=== PATIENT | female | born 1970 | race Caucasian/White ===

== ENCOUNTER 2019-12-18 09:44 | Inpatient (IN) | payer MEDICAID, OTHER, SELFPAY ==
[~2019-12-18] VITALS: Ht 162.6 cm; Wt 79.4 kg
[2019-12-18] VITALS (8 sets, daily range): BP systolic 97–145; BP diastolic 50–85
[2019-12-18] MEDS ORDERED: SODIUM CHLORIDE 0.9% 1,000ML IVBOLUS ONE ×2 (10:00→11:00)
[2019-12-18] MEDS ORDERED: PANTOPRAZOLE 40 MG IV IVPush ONE (10:00)
[2019-12-18] MEDS ORDERED: SODIUM CHLORIDE FLUSH 10ML SYR IVF ONE (10:00)
--- NOTE | 2019-12-18 10:09 | NUR ---
THIS IS A 49 YEAR OLD FEMALE WHO WAS BIB BY AMBULANCE DUE TO ALTERED. PT FOUND BY FAMILY ALTERED ON THE GROUND, DEEP, GASPING BREATHING. FAMILY POOR HISTORI[employer]. PT ALERT, STATES, "OUCH". PT TO CT SCAN. PT BACK TO ROOM, [facility] IR[facility] AND TACY, CO2 18, 98% ON RA, CYCLE VS. TEMP 100.3 RECTAL
[2019-12-18] MEDS ORDERED: ETOMIDATE 20 MG/10 ML ONE (10:24)
[2019-12-18] MEDS ORDERED: PROPOFOL 10 MG/ML, 100ML IV ONE (10:24)
[2019-12-18] MEDS ORDERED: SUCCINYLCHOLINE 20 MG/ML, 10ML ONE (10:24)
[2019-12-18] MEDS ORDERED: VECURONIUM 10 MG ONE (10:24)
[2019-12-18] MEDS ORDERED: PLEASE ENTER HEIGHT AND WEIGHT MC SCH (10:30)
[2019-12-18] MEDS ORDERED: CEFTRIAXONE PMX 1GM/50ML 50 ML IVPB ONE (10:30)
[2019-12-18] MEDS ORDERED: PLEASE ENTER ALLERGIES MC SCH (10:30)
[2019-12-18 10:32] LABS: MEAN CORPUSCULAR HEMOGLOBIN 26.6 pg (27.0-34.8); MEAN CORPUSCULAR HGB CONC 31.7 g/dL (32.4-35.8); MEAN CORPUSCULAR VOLUME 83.7 fL (80-100); MEAN PLATELET VOLUME 7.3 fL (7.4-10.4); PLATELET COUNT 572 x10^3/uL (130-400); RED BLOOD COUNT 2.56 x10^6/uL (3.82-5.3); RED CELL DISTRIBUTION WIDTH 17.5 % (9.6-15.2)
--- NOTE | 2019-12-18 10:40 | NUR ---
ITUBATE DUE TO RESP DISTRESS, ETOMODATE 20MG IV, 90 SUCCICOLINE, 8.0 22 AT THE LIP. GOOD CAP, CENTRAL LINE PLACED BY DR. MURPHY, STOP TIME COMPLETED PRIOR TO PROCEEDURES
[2019-12-18 10:47] LABS: MICROSCOPIC INDICATED
[2019-12-18 10:52] LABS: MD YES
[2019-12-18 10:54] LABS: BAND#(MANUAL) 2.29 x10^3/uL; BANDS%(MANUAL) 9 % (0-7); LYMPH#(MANUAL) 0.51 x10^3/uL (1-3.4); LYMPHS% (MANUAL) 2 % (22-44); MONOS#(MANUAL) 0.51 x10^3/uL (0.3-2.7); MONOS% (MANUAL) 2 % (2-9); SEGS% (MANUAL) 87 % (42-75)
[2019-12-18 10:55] LABS: ANISOCYTOSIS 1+; OVALOCYTES 1+; TEAR DROPS 1+
[2019-12-18] MEDS ORDERED: CEFTRIAXONE PMX 1GM/50ML 50 ML ONE (10:55)
[2019-12-18] MEDS ORDERED: PANTOPRAZOLE 40 MG IV ONE (10:55)
[2019-12-18 10:56] LABS: <PLATELET ESTIMATE> INCREASED; <PLT MORPHOLOGY> NORMAL PLT MORPH; HYPOCHROMIA 1+
[2019-12-18] MEDS ORDERED: ETOMIDATE 20 MG/10 ML IVPush ONE (11:00)
[2019-12-18] MEDS ORDERED: SUCCINYLCHOLINE 20 MG/ML, 10ML IVPush ONE (11:00)
--- NOTE | 2019-12-18 11:04 | NUR ---
BLOOD CULTURES DRAWN X 2 PRIOR TO ANTIBX
[2019-12-18 11:06] LABS: ALANINE AMINOTRANSFERASE 28 U/L (12-78); ALBUMIN 2.9 g/dL (3.4-5.0); ANION GAP 30 mmol/L (5-15); CALCIUM 6.6 mg/dL (8.5-10.1); CHLORIDE 101 mmol/L (98-107); SALICYLATE LEVEL 3.6 mg/dL (2.8-20.0)
[2019-12-18 11:08] LABS: ALKALINE PHOSPHATASE 148 U/L (45-117); BILIRUBIN,TOTAL 0.2 mg/dL (0.2-1.0); TOTAL PROTEIN 8.2 g/dL (6.4-8.2)
[2019-12-18] MEDS ORDERED: DEXTROSE 50%, 50ML SYRINGE IVPush ONE (11:30)
[2019-12-18] MEDS ORDERED: INSULIN REGULAR 100 UNITS/ML, 3ML VIAL IVPush ONE (11:30)
[2019-12-18] MEDS ORDERED: CALCIUM CHLORIDE 10%, 10ML SYR IVPush ONE (11:30)
[2019-12-18] MEDS ORDERED: SODIUM BICARB 8.4%, 50ML SYRINGE IVPush ONE (11:30)
[2019-12-18] MEDS ORDERED: CALCIUM CHLORIDE 10%, 10ML SYR ONE (11:31)
[2019-12-18] MEDS ORDERED: DEXTROSE 50%, 50ML SYRINGE ONE (11:32)
[2019-12-18] MEDS ORDERED: INSULIN SINGLE DOSE, ER ONE (11:32)
[2019-12-18] MEDS ORDERED: SODIUM BICARB 8.4%, 50ML SYRINGE ONE (11:32)
[2019-12-18] MEDS: PROPOFOL 100 ML IV PRN ×2 (11:38→18:02)
--- NOTE | 2019-12-18 11:54 | NUR ---
PT MOTHER VISIT NOEMY SCHNEIDER AT [phone]
[2019-12-18] MEDS: SODIUM BICARB 8.4%,50ML SYR. 150 MEQ in DEXTROSE 5% 1,000 ML IV SCH ×2 (11:58→17:57)
--- NOTE | 2019-12-18 11:58 | NUR ---
[facility] [phone]
[2019-12-18] MEDS ORDERED: VECURONIUM 10 MG IVPush ONE (12:00)
[2019-12-18] MEDS ORDERED: LISI5TAB7 PO (12:05)
[2019-12-18] MEDS ORDERED: MORP30TA81 PO (12:05)
[2019-12-18] MEDS ORDERED: VERA120T13 PO (12:05)
--- NOTE | 2019-12-18 12:15 | NUR ---
DISCUSS WITH FAMILY PLAN OF CARE, RECEIVED PHONE NUMBERS. BLOOD INFUSING WELL.
[2019-12-18] MEDS ORDERED: LIDOCAINE 1%, 10ML ONE (12:49)
--- NOTE | 2019-12-18 12:59 | NUR ---
REPORT TO YIFAN RN IN CCU IR AT BEDSIDE FOR DIALYSIS LINE PLACEMENT-ASKED TO PERFORM PROCEDURE IN CCU (IR AGREEABLE) FLUID BOLUS COMPLETE (SEPSIS 30ML/KG)
[2019-12-18] MEDS ORDERED: morphine SULFATE 10 MG/ML, 1ML IVPush PRN (13:00)
[2019-12-18] MEDS ORDERED: BISACODYL 10 MG SUPP PR PRN (13:00)
[2019-12-18] MEDS ORDERED: ONDANSETRON 2MG/ML, 2ML IVPush PRN (13:00)
[2019-12-18] MEDS ORDERED: POLYETHYLENE GLYCOL 17 GM PACKET PO PRN (13:00)
[2019-12-18] MEDS ORDERED: DOXYCYCLINE 100 MG in DEXTROSE 5% 250 ML IV SCH (13:00)
[2019-12-18 13:53] LABS: FREE T4 (FREE THYROXINE) 0.91 ng/dL (0.76-1.46); TROPONIN I < 0.015 ng/mL (0.000-0.045)
[2019-12-18] MEDS ORDERED: LINEZOLID 20MG/ML ORAL SUSP PO SCH (14:30)
[2019-12-18] MEDS ORDERED: LINEZOLID 600 MG TABLET PO SCH (14:46)
[2019-12-18] MEDS ORDERED: SENNA/DOCUSATE TABLET NG PRN (15:30)
[2019-12-18] MEDS ORDERED: SENNA 176 MG/5 ML ORAL SOL NG PRN (15:30)
[2019-12-18] MEDS ORDERED: PHARMACY MAY ADJ FOR RENAL FX MC SCH (15:30)
[2019-12-18] MEDS ORDERED: DOCUSATE 50 MG/5 ML, 10ML UDC NG PRN (15:30)
[2019-12-18] MEDS ORDERED: DEXTROSE 50%, 50ML SYRINGE IVPush PRN (15:30)
[2019-12-18] MEDS ORDERED: GLUCAGON 1 MG IM PRN (15:30)
[2019-12-18] MEDS ORDERED: DEXTROSE 4 GM TAB.CHEW PO PRN (15:30)
[2019-12-18] MEDS: HEPARIN 5,000 UNITS/ML, 1ML SQ SCH (18:02)
[2019-12-18] MEDS: MEROPENEM 500 MG in SODIUM CHLORIDE 0.9% 100 ML IV SCH (18:34)
[2019-12-18 18:58] LABS: TROPONIN I 0.075 ng/mL (0.000-0.045)
[2019-12-18 19:02] LABS: ANION GAP 16 mmol/L (5-15); CALCIUM 7.4 mg/dL (8.5-10.1); CHLORIDE 100 mmol/L (98-107); CREATININE 4.83 mg/dL (0.55-1.02)
[2019-12-18 19:18] LABS: MD YES; MEAN CORPUSCULAR HEMOGLOBIN 27.6 pg (27.0-34.8); MEAN CORPUSCULAR HGB CONC 33.5 g/dL (32.4-35.8); MEAN CORPUSCULAR VOLUME 82.2 fL (80-100); MEAN PLATELET VOLUME 7.2 fL (7.4-10.4); PLATELET COUNT 309 x10^3/uL (130-400); RED BLOOD COUNT 3.03 x10^6/uL (3.82-5.3); RED CELL DISTRIBUTION WIDTH 15.4 % (9.6-15.2)
[2019-12-18 19:25] LABS: ANISOCYTOSIS 1+; BAND#(MANUAL) 0.59 x10^3/uL; BANDS%(MANUAL) 9 % (0-7); HYPOCHROMIA 1+; LYMPH#(MANUAL) 0.73 x10^3/uL (1-3.4); LYMPHS% (MANUAL) 11 % (22-44); MONOS#(MANUAL) 0.13 x10^3/uL (0.3-2.7); MONOS% (MANUAL) 2 % (2-9); OVALOCYTES 1+; SEG#(MANUAL) 5.15 x10^3/uL (1.8-6.8); SEGS% (MANUAL) 78 % (42-75)
[2019-12-18 19:26] LABS: <PLATELET ESTIMATE> ADEQUATE; <PLT MORPHOLOGY> NORMAL PLT MORPH; TEAR DROPS 1+
[2019-12-18] MEDS ORDERED: KSCALE TO 4.0 IV ONE (20:30)
[2019-12-18] MEDS ORDERED: POTASSIUM CHLORIDE 30 MEQ in SODIUM CHLORIDE 0.9% 100 ML IV ONE (20:30)
[2019-12-18] MEDS: LACTULOSE 20 GM/30 ML UDC PO SCH ×2 (21:00→23:06)
[2019-12-18] MEDS: SODIUM CHLORIDE FLUSH 10ML SYR IVF SCH (21:09)
[2019-12-18] MEDS: KSCALE TO 4.0 IV SCH (21:09)
[2019-12-18] MEDS: FAMOTIDINE 20 MG/2 ML IVPush SCH (21:10)
[2019-12-18] MEDS ORDERED: ACETAMINOPHEN 650 MG/20.3 ML UDC ONE (23:26)
[2019-12-18] MEDS ORDERED: NOREPINEPHRINE 8 MG in SODIUM CHLORIDE 0.9% 242 ML IV PRN (23:30)
[2019-12-18] MEDS: LINEZOLID 600 MG TABLET PO SCH (23:34)
[2019-12-18] MEDS: ACETAMINOPHEN 325 MG TABLET PO PRN (23:35)
[2019-12-19] MEDS ORDERED: PROPOFOL 100 ML IV ONE (01:24)
[2019-12-19 02:24] LABS: MEAN CORPUSCULAR HEMOGLOBIN 27.6 pg (27.0-34.8); MEAN CORPUSCULAR HGB CONC 33.7 g/dL (32.4-35.8); MEAN CORPUSCULAR VOLUME 81.9 fL (80-100); MEAN PLATELET VOLUME 6.9 fL (7.4-10.4); PLATELET COUNT 334 x10^3/uL (130-400); RED BLOOD COUNT 3.11 x10^6/uL (3.82-5.3); RED CELL DISTRIBUTION WIDTH 15.3 % (9.6-15.2)
[2019-12-19 02:34] LABS: ALBUMIN 1.6 g/dL (3.4-5.0); ANION GAP 10 mmol/L (5-15); CALCIUM 6.7 mg/dL (8.5-10.1); CHLORIDE 99 mmol/L (98-107); CREATININE 4.76 mg/dL (0.55-1.02); IRON LEVEL 10 mcg/dL (50-170)
[2019-12-19 02:43] LABS: MD YES
[2019-12-19 02:48] LABS: % IRON SATURATION 5 % (20-55); BAND#(MANUAL) 1.58 x10^3/uL; BANDS%(MANUAL) 17 % (0-7); CREATINE KINASE, TOTAL 3663 U/L (26-192); EOS#(MANUAL) 0.09 x10^3/uL (0.0-0.4); EOS% (MANUAL) 1 % (1-7); LYMPH#(MANUAL) 1.02 x10^3/uL (1-3.4); LYMPHS% (MANUAL) 11 % (22-44); METAMYELOCYTES# (MANUAL) 0.09 x10^3/uL (0-0); METAMYELOCYTES% (MANUAL) 1 % (0-1); MONOS#(MANUAL) 0.37 x10^3/uL (0.3-2.7); MONOS% (MANUAL) 4 % (2-9); NRBC % (MANUAL) 1 % (0-1); SEG#(MANUAL) 6.14 x10^3/uL (1.8-6.8); SEGS% (MANUAL) 66 % (42-75); TOTAL IRON BINDING CAPACITY 197 mcg/dL (250-450)
[2019-12-19 02:49] LABS: ANISOCYTOSIS 1+
[2019-12-19 02:50] LABS: MICROCYTOSIS 1+
[2019-12-19 02:51] LABS: <PLATELET ESTIMATE> ADEQUATE; OVALOCYTES 1+
[2019-12-19 02:52] LABS: SMALL PLATELETS 1+
[2019-12-19] MEDS ORDERED: POTASSIUM CHLORIDE 30 MEQ in SODIUM CHLORIDE 0.9% 100 ML IV ONE (03:00)
[2019-12-19] MEDS: KSCALE TO 4.0 IV SCH ×4 (03:00→21:00)
[2019-12-19 04:30] VITALS: BP 109/66
[2019-12-19] MEDS: MEROPENEM 500 MG in SODIUM CHLORIDE 0.9% 100 ML IV SCH ×2 (06:28→17:47)
[2019-12-19] MEDS ORDERED: MAGNESIUM SULFATE PMX 2GM/50ML 50 ML IV ONE ×2 (06:30→08:00)
[2019-12-19] MEDS: PROPOFOL 100 ML IV PRN ×3 (06:33→18:44)
[2019-12-19] MEDS ORDERED: ERGOCALCIFEROL 50,000 UNIT CAPSULE PO SCH (07:00)
[2019-12-19] MEDS ORDERED: PANTOPRAZOLE 40 MG IV IV SCH (09:00)
[2019-12-19] MEDS: SODIUM CHLORIDE FLUSH 10ML SYR IVF SCH ×2 (09:04→19:43)
[2019-12-19] MEDS: HEPARIN 5,000 UNITS/ML, 1ML SQ SCH ×2 (09:05→19:42)
[2019-12-19] MEDS: LINEZOLID 600 MG TABLET PO SCH (09:05)
[2019-12-19] MEDS: SENNA/DOCUSATE TABLET PO SCH (09:06)
[2019-12-19] MEDS: LACTATED RINGERS 1,000 ML IV SCH ×2 (09:06→23:01)
[2019-12-19] MEDS ORDERED: CEFTRIAXONE PMX 2GM/50ML 50 ML IV SCH (11:00)
[2019-12-19] MEDS ORDERED: CALCIUM CHLORIDE 13.6 MEQ in SODIUM CHLORIDE 0.9% 100 ML IV ONE (11:30)
[2019-12-19] MEDS ORDERED: SODIUM BICARBONATE 8.4% 150 MEQ in DEXTROSE 5% 1,000 ML IV SCH (11:30)
[2019-12-19] MEDS: LACTULOSE 20 GM/30 ML UDC PO SCH ×3 (12:00→21:00)
[2019-12-19 13:44] LABS: CREATININE,URINE RANDOM 79.9 mg/dL
[2019-12-19] MEDS: POTASSIUM CHLORIDE PMX 100 ML IV ONE ×2 (14:56→16:18)
[2019-12-19] MEDS ORDERED: FENTANYL PF 1,000 MCG in SODIUM CHLORIDE 0.9% 80 ML IV PRN (16:00)
[2019-12-19] MEDS ORDERED: POTASSIUM CHLORIDE PMX 100 ML IV ONE (19:30)
[2019-12-19] MEDS: FAMOTIDINE 20 MG/2 ML IVPush SCH (19:43)
[2019-12-19] MEDS: OXYcodone IR 5MG TABLET PO PRN (19:44)
[2019-12-20] MEDS: OXYcodone IR 5MG TABLET PO PRN ×5 (00:06→21:36)
[2019-12-20] MEDS: KSCALE TO 4.0 IV SCH ×4 (03:00→20:56)
[2019-12-20] MEDS: PROPOFOL 100 ML IV PRN (03:11)
[2019-12-20 04:00] VITALS: BP 132/83
[2019-12-20 05:14] LABS: MEAN CORPUSCULAR HEMOGLOBIN 27.5 pg (27.0-34.8); MEAN CORPUSCULAR HGB CONC 33.2 g/dL (32.4-35.8); MEAN CORPUSCULAR VOLUME 82.9 fL (80-100); MEAN PLATELET VOLUME 7.1 fL (7.4-10.4); PLATELET COUNT 273 x10^3/uL (130-400); RED BLOOD COUNT 2.86 x10^6/uL (3.82-5.3); RED CELL DISTRIBUTION WIDTH 15.6 % (9.6-15.2)
[2019-12-20 05:20] LABS: ALANINE AMINOTRANSFERASE 29 U/L (12-78); ALBUMIN 1.6 g/dL (3.4-5.0); ANION GAP 8 mmol/L (5-15); CALCIUM 7.8 mg/dL (8.5-10.1); CHLORIDE 103 mmol/L (98-107); CREATININE 2.05 mg/dL (0.55-1.02)
[2019-12-20 05:34] LABS: ALKALINE PHOSPHATASE 194 U/L (45-117); BILIRUBIN,TOTAL 0.3 mg/dL (0.2-1.0); CREATINE KINASE, TOTAL 1630 U/L (26-192); TOTAL PROTEIN 5.6 g/dL (6.4-8.2)
[2019-12-20] MEDS: MEROPENEM 500 MG in SODIUM CHLORIDE 0.9% 100 ML IV SCH (05:34)
[2019-12-20] MEDS: LACTATED RINGERS 1,000 ML IV SCH (05:36)
[2019-12-20 05:38] LABS: BILIRUBIN, DIRECT 0.1 mg/dL (0.1-0.2); BILIRUBIN,INDIRECT 0.2 mg/dL (0.0-2.0)
[2019-12-20 06:03] LABS: MD YES
[2019-12-20 06:05] LABS: ANISOCYTOSIS 1+; BAND#(MANUAL) 0.88 x10^3/uL; BANDS%(MANUAL) 6 % (0-7); LYMPH#(MANUAL) 0.88 x10^3/uL (1-3.4); LYMPHS% (MANUAL) 6 % (22-44); MICROCYTOSIS 1+; MONOS#(MANUAL) 0.44 x10^3/uL (0.3-2.7); MONOS% (MANUAL) 3 % (2-9); SEG#(MANUAL) 12.41 x10^3/uL (1.8-6.8); SEGS% (MANUAL) 85 % (42-75)
[2019-12-20 06:06] LABS: <PLATELET ESTIMATE> ADEQUATE; <PLT MORPHOLOGY> NORMAL PLT MORPH; OVALOCYTES 1+; TEAR DROPS 1+; TOXIC GRAN 1+
[2019-12-20] MEDS ORDERED: POTASSIUM CHLORIDE 30 MEQ in SODIUM CHLORIDE 0.9% 100 ML IV ONE (06:30)
[2019-12-20] MEDS ORDERED: LIDOCAINE-MPF 1%, 2ML ENDO PRN (08:30)
[2019-12-20] MEDS: POTASSIUM CHLORIDE 10% 20 MEQ/15 ML UDC PO SCH ×2 (09:18→16:57)
[2019-12-20] MEDS: SODIUM CHLORIDE FLUSH 10ML SYR IVF SCH ×2 (09:18→20:55)
[2019-12-20] MEDS: HEPARIN 5,000 UNITS/ML, 1ML SQ SCH ×2 (09:18→20:05)
[2019-12-20] MEDS: SENNA/DOCUSATE TABLET PO SCH (09:18)
[2019-12-20] MEDS ORDERED: DEXMEDETOMIDINE 400 MCG in SODIUM CHLORIDE 0.9% 96 ML IV PRN (09:30)
[2019-12-20] MEDS: NS + 20MEQ KCL 1,000 ML IV SCH (10:47)
[2019-12-20 11:29] LABS: MICROSCOPIC AUTO
[2019-12-20] MEDS: CEFAZOLIN PMX 1GM/50ML 50 ML IV SCH ×2 (11:44→20:05)
[2019-12-20] MEDS ORDERED: POTASSIUM CHLORIDE PMX 100 ML IV ONE ×3 (12:00→21:30)
[2019-12-20] MEDS: ONDANSETRON 2MG/ML, 2ML IV PRN (16:28)
[2019-12-20] MEDS: FAMOTIDINE 20 MG/2 ML IVPush SCH (20:55)
[2019-12-21] MEDS: NS + 20MEQ KCL 1,000 ML IV SCH ×2 (00:38→09:25)
[2019-12-21] MEDS: KSCALE TO 4.0 IV SCH (03:00)
[2019-12-21] MEDS: CEFAZOLIN PMX 1GM/50ML 50 ML IV SCH ×3 (03:44→19:55)
[2019-12-21 04:00] VITALS: BP 156/96
[2019-12-21] MEDS ORDERED: POTASSIUM CHLORIDE PMX 100 ML IV ONE (04:00)
[2019-12-21] MEDS: OXYcodone IR 5MG TABLET PO PRN ×4 (04:19→21:40)
[2019-12-21] MEDS: ONDANSETRON 2MG/ML, 2ML IV PRN ×2 (04:26→22:33)
[2019-12-21] MEDS: SENNA/DOCUSATE TABLET PO SCH (07:38)
[2019-12-21 07:55] LABS: ANION GAP 9 mmol/L (5-15); CALCIUM 8.1 mg/dL (8.5-10.1); CHLORIDE 112 mmol/L (98-107); CREATININE 1.22 mg/dL (0.55-1.02)
[2019-12-21] MEDS: HEPARIN 5,000 UNITS/ML, 1ML SQ SCH ×2 (09:24→19:55)
[2019-12-21] MEDS: SODIUM CHLORIDE FLUSH 10ML SYR IVF SCH ×2 (09:25→20:45)
[2019-12-21 10:59] LABS: MEAN CORPUSCULAR HEMOGLOBIN 27.1 pg (27.0-34.8); MEAN CORPUSCULAR HGB CONC 32.1 g/dL (32.4-35.8); MEAN CORPUSCULAR VOLUME 84.6 fL (80-100); MEAN PLATELET VOLUME 6.4 fL (7.4-10.4); PLATELET COUNT 287 x10^3/uL (130-400); RED BLOOD COUNT 3.05 x10^6/uL (3.82-5.3); RED CELL DISTRIBUTION WIDTH 15.9 % (9.6-15.2)
[2019-12-21 11:13] LABS: BASOPHILS # (AUTO) 0.01 x10^3/uL (0-0.1); BASOPHILS % (AUTO) 0 % (0-1); EOSINOPHILS # (AUTO) 0.03 x10^3/uL (0-0.4); EOSINOPHILS % (AUTO) 0 % (1-7); LYMPHOCYTES # (AUTO) 0.99 x10^3/uL (1-3.4); LYMPHOCYTES % (AUTO) 5 % (22-44); MD SCAN; MONOCYTES # (AUTO) 1.09 x10^3/uL (0.2-0.8); MONOCYTES % (AUTO) 5 % (2-9); NEUTROPHILS # (AUTO) 18.44 x10^3/uL (1.8-6.8); NEUTROPHILS % (AUTO) 90 % (42-75)
[2019-12-21 13:44] LABS: CLOSTRIDIUM DIFFICILE ANTIGEN NEGATIVE; CLOSTRIDIUM DIFFICILE TOXIN NEGATIVE (Negative)
[2019-12-21 19:05] VITALS: BP 167/99
[2019-12-21] MEDS: VERAPAMIL 80MG TABLET PO SCH (20:49)
[2019-12-21] MEDS: FAMOTIDINE 20 MG/2 ML IVPush SCH (20:49)
[2019-12-22] VITALS (8 sets, daily range): BP systolic 139–173; BP diastolic 90–108
[2019-12-22] MEDS: NS + 20MEQ KCL 1,000 ML IV SCH ×2 (00:01→08:00)
[2019-12-22] MEDS: LABETALOL 5MG/ML, 20ML IVPush PRN ×2 (00:35→04:00)
[2019-12-22] MEDS: OXYcodone IR 5MG TABLET PO PRN ×5 (02:39→20:26)
[2019-12-22] MEDS ORDERED: hydrALAzine 20 MG/ML, 1ML IV PRN (03:00)
[2019-12-22] MEDS: CEFAZOLIN PMX 1GM/50ML 50 ML IV SCH ×3 (04:00→19:56)
[2019-12-22] MEDS: ONDANSETRON 2MG/ML, 2ML IV PRN ×3 (05:31→19:56)
[2019-12-22] MEDS: SENNA/DOCUSATE TABLET PO SCH (07:33)
[2019-12-22] MEDS: SODIUM CHLORIDE FLUSH 10ML SYR IVF SCH ×2 (07:33→20:27)
[2019-12-22] MEDS: VERAPAMIL 80MG TABLET PO SCH ×3 (07:39→22:15)
[2019-12-22] MEDS: FAMOTIDINE 20 MG/2 ML IVPush SCH (07:40)
[2019-12-22] MEDS: HEPARIN 5,000 UNITS/ML, 1ML SQ SCH ×2 (07:40→20:26)
[2019-12-22 09:02] LABS: MEAN CORPUSCULAR HEMOGLOBIN 26.9 pg (27.0-34.8); MEAN CORPUSCULAR VOLUME 83.9 fL (80-100); MEAN PLATELET VOLUME 6.6 fL (7.4-10.4); PLATELET COUNT 238 x10^3/uL (130-400); RED BLOOD COUNT 3.04 x10^6/uL (3.82-5.3); RED CELL DISTRIBUTION WIDTH 16.1 % (9.6-15.2)
[2019-12-22 09:14] LABS: ALANINE AMINOTRANSFERASE 17 U/L (12-78); ALBUMIN 1.9 g/dL (3.4-5.0); ANION GAP 6 mmol/L (5-15); CALCIUM 8.2 mg/dL (8.5-10.1); CHLORIDE 118 mmol/L (98-107); CREATININE 0.79 mg/dL (0.55-1.02)
[2019-12-22 09:18] LABS: ALKALINE PHOSPHATASE 135 U/L (45-117); BILIRUBIN,TOTAL 0.3 mg/dL (0.2-1.0); TROPONIN I < 0.015 ng/mL (0.000-0.045)
[2019-12-22 09:19] LABS: CREATINE KINASE, TOTAL 260 U/L (26-192)
[2019-12-22 09:29] LABS: MD YES
[2019-12-22 09:31] LABS: <PLATELET ESTIMATE> ADEQUATE; <PLT MORPHOLOGY> NORMAL PLT MORPH; ANISOCYTOSIS 1+; BAND#(MANUAL) 0.55 x10^3/uL; BANDS%(MANUAL) 3 % (0-7); EOS#(MANUAL) 0.18 x10^3/uL (0.0-0.4); EOS% (MANUAL) 1 % (1-7); LYMPH#(MANUAL) 1.66 x10^3/uL (1-3.4); LYMPHS% (MANUAL) 9 % (22-44); METAMYELOCYTES# (MANUAL) 0.18 x10^3/uL (0-0); METAMYELOCYTES% (MANUAL) 1 % (0-1); MONOS#(MANUAL) 0.92 x10^3/uL (0.3-2.7); MONOS% (MANUAL) 5 % (2-9); MYELOCYTES# (MANUAL) 0.18 x10^3/uL (0-0); MYELOCYTES% (MANUAL) 1 % (0-0); NRBC % (MANUAL) 1 % (0-1); OVALOCYTES 1+; SEG#(MANUAL) 14.72 x10^3/uL (1.8-6.8); SEGS% (MANUAL) 80 % (42-75)
[2019-12-22 09:32] LABS: POLYCHROMASIA 1+; TEAR DROPS 1+; TOXIC GRAN 1+
[2019-12-22 09:35] LABS: HYPOCHROMIA 1+
[2019-12-22] MEDS ORDERED: POTASSIUM CHLORIDE 10 MEQ TABLET.ER PO ONE (11:00)
[2019-12-22] MEDS ORDERED: FUROSEMIDE 40 MG/4 ML IV ONE (11:00)
[2019-12-22] MEDS ORDERED: LISI-420 PO (14:56)
[2019-12-22] MEDS ORDERED: SODI650T PO (14:56)
[2019-12-22] MEDS ORDERED: TOPI100T39 PO (14:56)
[2019-12-22] MEDS ORDERED: VERA80TA25 PO (14:56)
[2019-12-22] MEDS ORDERED: FOLI-17 PO (14:56)
[2019-12-22] MEDS ORDERED: FERR324T5 PO (14:56)
[2019-12-22] MEDS ORDERED: OMEP20TA62 PO (14:56)
[2019-12-22] MEDS ORDERED: BUTA1CAP59 PO (15:06)
[2019-12-22] MEDS ORDERED: MAGN400T36 PO (15:06)
[2019-12-22] MEDS ORDERED: PREG100C PO (15:06)
[2019-12-22] MEDS ORDERED: GABA-827 PO (15:06)
[2019-12-23] MEDS: OXYcodone IR 5MG TABLET PO PRN ×6 (00:29→21:47)
[2019-12-23 00:30] VITALS: BP 152/90
[2019-12-23] MEDS: CEFAZOLIN PMX 1GM/50ML 50 ML IV SCH ×3 (04:15→20:39)
[2019-12-23] MEDS: ONDANSETRON 2MG/ML, 2ML IV PRN ×3 (04:22→19:11)
[2019-12-23] MEDS: SODIUM CHLORIDE FLUSH 10ML SYR IVF SCH ×2 (07:03→21:34)
[2019-12-23] MEDS: SENNA/DOCUSATE TABLET PO SCH (07:04)
[2019-12-23 08:04] VITALS: BP_SYST 139; BP_SYST 161; BP_DIAS 101; BP_DIAS 87
[2019-12-23] MEDS: VERAPAMIL 80MG TABLET PO SCH ×3 (08:45→20:26)
[2019-12-23] MEDS: HEPARIN 5,000 UNITS/ML, 1ML SQ SCH ×2 (08:52→20:39)
[2019-12-23] MEDS ORDERED: FAMOTIDINE 20 MG TABLET PO SCH (09:00)
[2019-12-23 09:44] VITALS: BP 128/81
[2019-12-23 09:46] LABS: MEAN CORPUSCULAR HEMOGLOBIN 26.1 pg (27.0-34.8); MEAN CORPUSCULAR HGB CONC 31.2 g/dL (32.4-35.8); MEAN CORPUSCULAR VOLUME 83.7 fL (80-100); PLATELET COUNT 187 x10^3/uL (130-400); RED BLOOD COUNT 2.84 x10^6/uL (3.82-5.3); RED CELL DISTRIBUTION WIDTH 16.2 % (9.6-15.2)
[2019-12-23 09:52] LABS: CHLORIDE 113 mmol/L (98-107)
[2019-12-23 09:56] LABS: ALBUMIN 2.2 g/dL (3.4-5.0); ANION GAP 9 mmol/L (5-15); CALCIUM 8.4 mg/dL (8.5-10.1); CREATININE 0.83 mg/dL (0.55-1.02)
[2019-12-23 10:22] LABS: MD YES
[2019-12-23 10:24] LABS: BAND#(MANUAL) 0.62 x10^3/uL; BANDS%(MANUAL) 4 % (0-7); EOS#(MANUAL) 0.46 x10^3/uL (0.0-0.4); EOS% (MANUAL) 3 % (1-7); LYMPH#(MANUAL) 1.69 x10^3/uL (1-3.4); LYMPHS% (MANUAL) 11 % (22-44); METAMYELOCYTES# (MANUAL) 0.31 x10^3/uL (0-0); METAMYELOCYTES% (MANUAL) 2 % (0-1); MONOS#(MANUAL) 1.08 x10^3/uL (0.3-2.7); MONOS% (MANUAL) 7 % (2-9); MYELOCYTES# (MANUAL) 0.15 x10^3/uL (0-0); MYELOCYTES% (MANUAL) 1 % (0-0); NRBC % (MANUAL) 2 % (0-1); SEG#(MANUAL) 11.09 x10^3/uL (1.8-6.8); SEGS% (MANUAL) 72 % (42-75)
[2019-12-23 10:25] LABS: ANISOCYTOSIS 1+; HYPOCHROMIA 1+; OVALOCYTES 1+; POLYCHROMASIA 1+; STOMATOCYTES 1+; TEAR DROPS 1+
[2019-12-23 10:26] LABS: <PLATELET ESTIMATE> ADEQUATE; <PLT MORPHOLOGY> NORMAL PLT MORPH; TOXIC GRAN 1+
[2019-12-23] MEDS ORDERED: IRON SUCROSE COMPLEX 100MG/5ML IV SCH (10:30)
[2019-12-23] MEDS: IRON SUCROSE COMPLEX 100MG/5ML IV SCH (12:07)
[2019-12-23 13:44] VITALS: BP 154/98
[2019-12-23] MEDS: POTASSIUM CHLORIDE 20 MEQ TAB.ER.PRT PO SCH (16:58)
[2019-12-23] MEDS: DIPHENOXYLATE/ATROPINE TABLET PO PRN (17:14)
[2019-12-23 20:20] VITALS: BP 142/89
[2019-12-23] MEDS: FAMOTIDINE 20 MG TABLET PO SCH (20:27)
[2019-12-24 00:23] VITALS: BP 137/84
[2019-12-24] MEDS: OXYcodone IR 5MG TABLET PO PRN ×6 (01:33→23:14)
[2019-12-24] MEDS: CEFAZOLIN PMX 1GM/50ML 50 ML IV SCH ×3 (04:06→20:18)
[2019-12-24 06:36] VITALS: BP 158/93
[2019-12-24] MEDS: SODIUM CHLORIDE FLUSH 10ML SYR IVF SCH ×2 (07:19→20:18)
[2019-12-24] MEDS: SENNA/DOCUSATE TABLET PO SCH (07:19)
[2019-12-24] MEDS: VERAPAMIL 80MG TABLET PO SCH ×3 (07:28→20:18)
[2019-12-24] MEDS: POTASSIUM CHLORIDE 20 MEQ TAB.ER.PRT PO SCH (07:28)
[2019-12-24] MEDS: DIPHENOXYLATE/ATROPINE TABLET PO PRN (07:28)
[2019-12-24] MEDS: FAMOTIDINE 20 MG TABLET PO SCH ×2 (07:28→20:18)
[2019-12-24] MEDS: ACETAMINOPHEN 325 MG TABLET PO PRN (07:28)
[2019-12-24] MEDS: HEPARIN 5,000 UNITS/ML, 1ML SQ SCH ×2 (07:30→20:18)
[2019-12-24] MEDS: ONDANSETRON 2MG/ML, 2ML IV PRN ×2 (07:38→14:14)
[2019-12-24] MEDS ORDERED: BUTALB/APAP/CAFFEINE 50MG/325MG/40MG PO ONE (11:30)
[2019-12-24] MEDS: IRON SUCROSE COMPLEX 100MG/5ML IV SCH (12:24)
[2019-12-24 12:39] LABS: MEAN CORPUSCULAR HEMOGLOBIN 26.8 pg (27.0-34.8); MEAN CORPUSCULAR HGB CONC 32.1 g/dL (32.4-35.8); MEAN CORPUSCULAR VOLUME 83.5 fL (80-100); MEAN PLATELET VOLUME 7.8 fL (7.4-10.4); PLATELET COUNT 164 x10^3/uL (130-400); RED BLOOD COUNT 2.83 x10^6/uL (3.82-5.3); RED CELL DISTRIBUTION WIDTH 16.4 % (9.6-15.2)
[2019-12-24 12:42] LABS: ALANINE AMINOTRANSFERASE 12 U/L (12-78); ALBUMIN 2.1 g/dL (3.4-5.0); ANION GAP 8 mmol/L (5-15); CALCIUM 8.2 mg/dL (8.5-10.1); CHLORIDE 113 mmol/L (98-107)
[2019-12-24 12:44] LABS: ALKALINE PHOSPHATASE 127 U/L (45-117); BILIRUBIN,TOTAL 0.4 mg/dL (0.2-1.0); CREATININE 0.72 mg/dL (0.55-1.02); TOTAL PROTEIN 6.6 g/dL (6.4-8.2)
[2019-12-24 13:07] LABS: MD YES
[2019-12-24 13:09] LABS: ANISOCYTOSIS 1+; BAND#(MANUAL) 0.16 x10^3/uL; BANDS%(MANUAL) 1 % (0-7); HYPOCHROMIA 1+; LYMPH#(MANUAL) 2.81 x10^3/uL (1-3.4); LYMPHS% (MANUAL) 18 % (22-44); METAMYELOCYTES# (MANUAL) 0.78 x10^3/uL (0-0); METAMYELOCYTES% (MANUAL) 5 % (0-1); MONOS#(MANUAL) 0.94 x10^3/uL (0.3-2.7); MONOS% (MANUAL) 6 % (2-9); MYELOCYTES# (MANUAL) 0.62 x10^3/uL (0-0); MYELOCYTES% (MANUAL) 4 % (0-0); OVALOCYTES 1+; POLYCHROMASIA 1+; SEGS% (MANUAL) 66 % (42-75)
[2019-12-24 13:10] LABS: <PLATELET ESTIMATE> ADEQUATE; <PLT MORPHOLOGY> NORMAL PLT MORPH; TOXIC GRAN 1+
[2019-12-24 13:28] VITALS: BP 133/85
[2019-12-24 20:11] VITALS: BP 145/88
[2019-12-25] MEDS: CEFAZOLIN PMX 1GM/50ML 50 ML IV SCH ×2 (04:10→12:29)
[2019-12-25] MEDS: OXYcodone IR 5MG TABLET PO PRN ×3 (04:10→12:29)
[2019-12-25 04:30] VITALS: BP 143/89
[2019-12-25] MEDS: ONDANSETRON 2MG/ML, 2ML IV PRN (04:34)
[2019-12-25 06:35] LABS: ALANINE AMINOTRANSFERASE 10 U/L (12-78); ALBUMIN 2.1 g/dL (3.4-5.0); ANION GAP 10 mmol/L (5-15); CALCIUM 8.1 mg/dL (8.5-10.1); CHLORIDE 113 mmol/L (98-107); CREATININE 0.71 mg/dL (0.55-1.02)
[2019-12-25 06:36] LABS: ALKALINE PHOSPHATASE 109 U/L (45-117); BILIRUBIN,TOTAL 0.3 mg/dL (0.2-1.0); TOTAL PROTEIN 6.5 g/dL (6.4-8.2)
[2019-12-25 06:46] VITALS: BP 144/92
[2019-12-25] MEDS: SENNA/DOCUSATE TABLET PO SCH (08:28)
[2019-12-25] MEDS: HEPARIN 5,000 UNITS/ML, 1ML SQ SCH (08:28)
[2019-12-25] MEDS: VERAPAMIL 80MG TABLET PO SCH (08:29)
[2019-12-25] MEDS: FAMOTIDINE 20 MG TABLET PO SCH (08:29)
[2019-12-25] MEDS: SODIUM CHLORIDE FLUSH 10ML SYR IVF SCH (08:29)
[2019-12-25] MEDS: IRON SUCROSE COMPLEX 100MG/5ML IV SCH (12:29)
[2019-12-25] MEDS ORDERED: SULF1TAB24 PO (12:59)
[2019-12-25 13:34] VITALS: BP 119/82
[2019-12-25] MEDS ORDERED: POTASSIUM CHLORIDE 20 MEQ TAB.ER.PRT PO SCH (17:00)
== END 2019-12-25 15:55 | disposition home or self-care (01) | DRG 871 ==
LOC: ED 10:58 → EDIP 11:24 → CCU 13:29 → 3N 12-21 12:10
PROVIDERS: ADMIT Internal Medicine; ATTEND Family Medicine
PROC: 02HV33Z Insertion of Infusion Device into Superior Vena Cava, Percutaneous Approach (ICD-10-PCS; principal; 2019-12-18)
PROC: 5A1945Z Respiratory Ventilation, 24-96 Consecutive Hours (ICD-10-PCS; 2019-12-18)
PROC: 0BH17EZ Insertion of Endotracheal Airway into Trachea, Via Natural or Artificial Opening (ICD-10-PCS; 2019-12-18)
PROC: 0T9B70Z Drainage of Bladder with Drainage Device, Via Natural or Artificial Opening (ICD-10-PCS; 2019-12-18)
PROC: 30230N1 Transfusion of Nonautologous Red Blood Cells into Peripheral Vein, Open Approach (ICD-10-PCS; 2019-12-18)
PROC: B544ZZA Ultrasonography of Left Jugular Veins, Guidance (ICD-10-PCS; 2019-12-18)
DX: A41.01 Sepsis due to Methicillin susceptible Staphylococcus aureus (principal); G93.41 Metabolic encephalopathy; J15.211 Pneumonia due to Methicillin susceptible Staphylococcus aureus; J96.01 Acute respiratory failure with hypoxia; N17.0 Acute kidney failure with tubular necrosis; R65.21 Severe sepsis with septic shock; D62 Acute posthemorrhagic anemia; E87.0 Hyperosmolality and hypernatremia; E87.1 Hypo-osmolality and hyponatremia; E87.2 Acidosis; G93.49 Other encephalopathy; J98.11 Atelectasis; K92.2 Gastrointestinal hemorrhage, unspecified; M62.82 Rhabdomyolysis; N39.0 Urinary tract infection, site not specified; Z99.11 Dependence on respirator [ventilator] status; N18.9 Chronic kidney disease, unspecified; E11.22 Type 2 diabetes mellitus with diabetic chronic kidney disease; E11.43 Type 2 diabetes mellitus with diabetic autonomic (poly)neuropathy; E11.65 Type 2 diabetes mellitus with hyperglycemia; E83.42 Hypomagnesemia; E83.51 Hypocalcemia; E87.6 Hypokalemia; E87.5 Hyperkalemia; G89.29 Other chronic pain; I12.9 Hypertensive chronic kidney disease with stage 1 through stage 4 chronic kidney disease, or unspecified chronic kidney disease; K31.84 Gastroparesis; M06.9 Rheumatoid arthritis, unspecified; I45.6 Pre-excitation syndrome; M79.7 Fibromyalgia; Z79.4 Long term (current) use of insulin; Z79.899 Other long term (current) drug therapy; Z03.818 Encounter for observation for suspected exposure to other biological agents ruled out
CPT/HCPCS: 31500; 36415; 36556; 36600; 82570; 96361; 96365; 96375; 99291; J3490; 36430; 70450; 71045; 76705; 76770; 76937; 80048; 80053; 80069; 80076; 80307; 81001; 82043; 82140; 82306; 82330; 82533; 82550; 82728; 82803; 82962; 83036; 83540; 83550; 83605; 83690; 83735; 83970; 84100; 84132; 84156; 84439; 84443; 84478; 84481; 84484; 84550; 84703; 85025; 85730; 86704; 86706; 86850; 86900; 86923; 87040; 87070; 87077; 87081; 87086; 87147; 87186; 87205; 87324; 87340; 87635; 90935; 93005; 93306; 94002; 94003; 94150; C1894; G0378; J0690; J0696; J1644; J1756; J1815; J1940; J2185; J2405; J2704; J3480; J7070; C1751; C9113; J0330; J0360; J1642; J3475; J7030; J7050; J7120; P9016

== ENCOUNTER 2020-12-14 09:08 | Outpatient (CLI) | payer MEDICAID ==
[~2020-12-14 09:08] MED LIST: BUTA1CAP59 PO; FERR324T5 PO; FOLI1TAB32 PO; GABA-827 PO; LISI20TA21 PO; LISI5TAB7 PO; MAGN400T36 PO; MORP30TA81 PO; OMEP20TA62 PO; PREG100C PO; REGADENOSON 0.4 MG/5 ML SYRINGE ONE; SODI650T PO; SULF-23 PO; TOPI100T39 PO; VERA120T13 PO; VERA80TA25 PO
== END 2020-12-14 23:59 | disposition home or self-care (01) ==
LOC: CFH 09:08
PROVIDERS: ATTEND Internal Medicine Cardiovascular Disease
DX: Z01.810 Encounter for preprocedural cardiovascular examination (principal)
CPT/HCPCS: 78452; 93017; A9502; J2785